=== PATIENT | male | born 1975 | race Caucasian/White ===

== ENCOUNTER → 2023-10-06 06:23 | Day surgery (SDC) | payer OTHER, SELFPAY | LOC: GI 06:23 | PROVIDERS: ATTENDING PHYSICIAN Internal Medicine Gastroenterology | DX: K62.1 Rectal polyp (principal); K64.8 Other hemorrhoids; R10.31 Right lower quadrant pain; K90.0 Celiac disease; K20.90 Esophagitis, unspecified without bleeding; K44.9 Diaphragmatic hernia without obstruction or gangrene; K31.89 Other diseases of stomach and duodenum | CPT/HCPCS: 45380; 43239; 88305; 88342 ==

== ENCOUNTER → 2024-12-31 11:25 | Outpatient (REF) | payer BC, SELFPAY | LOC: RAD 11:25 | PROVIDERS: ATTENDING PHYSICIAN Family Medicine | DX: R05.1 Acute cough (principal) | CPT/HCPCS: 71046 ==

== ENCOUNTER → 2025-04-26 11:24 | Outpatient (REF) | payer BC, SELFPAY | LOC: REG 11:24 | PROVIDERS: ATTENDING PHYSICIAN Specialist; FAMILY PHYSICIAN Family Medicine | DX: R31.9 Hematuria, unspecified (principal) | CPT/HCPCS: 36415; 87070 ==

== ENCOUNTER → 2025-04-28 12:33 | Outpatient (REF) | payer BC, SELFPAY | LOC: REG 12:33 | PROVIDERS: ATTENDING PHYSICIAN Specialist; FAMILY PHYSICIAN Family Medicine | DX: R31.9 Hematuria, unspecified (principal) | CPT/HCPCS: 87070 ==

== ENCOUNTER → 2025-05-04 07:12 | Outpatient (REF) | payer BC, SELFPAY | LOC: RAD 07:12 | PROVIDERS: ATTENDING PHYSICIAN Specialist; FAMILY PHYSICIAN Family Medicine | DX: R31.9 Hematuria, unspecified (principal) | CPT/HCPCS: 74178; Q9967 ==